=== PATIENT | female | born 2000 | race Caucasian/White ===

== ENCOUNTER → 2023-10-18 | Outpatient (CLI) | payer OTHER, SELFPAY ==
[2023-10-22 08:12] LABS: Chlamydia By Nucleic Acid AMP Negative (Negative); Gonococcus By Nucleic Acid AMP Negative (Negative)
[2023-10-25 17:53] LABS: HPV Reflexed? NOT INDICATED
== END | disposition home or self-care (01) ==
LOC: LABSPEC 17:06
PROVIDERS: PCP Family Medicine; Visit Provider Obstetrics & Gynecology
DX: Z11.3 Encounter for screening for infections with a predominantly sexual mode of transmission (principal); Z12.4 Encounter for screening for malignant neoplasm of cervix
CPT/HCPCS: 87491; 87591; 88175; G0145

== ENCOUNTER → 2023-10-30 | Outpatient (CLI) | payer OTHER, SELFPAY ==
--- NOTE | 2023-10-30 15:52 | US_ITS ---
STUDY: ULTRASOUND OF THE FEMALE PELVIS - COMPLETE REASON FOR EXAM: Female, 22 years old. PCOS LMP: 10/03/2023 TECHNIQUE: Transabdominal and Transvaginal TECHNICAL QUALITY: Adequate. COMPARISON: None. FINDINGS: The uterus is anteverted and is in a midline position. The uterus measures 8.4 x 6.8 x 4.3 cm. There is a Nabothian cyst of the cervix. The endometrium measures 15 mm in thickness, and is hyperechoic. Splitting of the endometrium in the fundus the uterus with intervening myometrium suggestive of a bicornuate uterus. There is no demonstrated endometrial mass. There is no demonstrated myometrial mass. I.U.D. - The patient does not have an I.U.D. The right ovary is visualized. The right ovary measures 3.9 x 2.9 x 2.7 cm. There is no right ovarian cyst or ovarian mass. 2 cm dominant follicle in the right ovary. There is no visualized right adnexal mass or complex lesion. There is normal arterial and normal venous vascularity. The left ovary is visualized. The left ovary measures 3.2 x 2.2 x 1.5 cm. There are multiple follicles of the left ovary without a dominant cyst. There is no visualized left adnexal mass or complex lesion. There is normal arterial and normal venous vascularity. There is no fluid in the cul-de-sac. The pre void volume of the bladder was ml. The post void volume of the bladder was ml. Polycystic ovary disease: Yes. US/Pelvic w/ Transvaginal IMPRESSION: 1. Bicornuate uterus. 2. Suspect polycystic ovaries. Electronically Signed: Bob Childers MD at 21:03 EST ,
[2023-10-30 17:25] LABS: Vitamin D,25 Hydroxy 26.1 ng/mL
[2023-10-30 17:29] LABS: Cholesterol 150 mg/dL (200); Estradiol 149.2 pg/mL; Glucose 91 mg/dL (74-106); High Density Lipoprotein 85 mg/dL; Thyroid Stim Hormone (TSH) 1.85 uIU/mL (0.358-3.74); Triglycerides 74 mg/dL; Very Low Density Lipoprotein 15 mg/dL (5-40)
[2023-11-06 15:08] LABS: Testosterone, % Free 2.82 % (0.50-2.80); Testosterone, Free 1.04 ng/dL (0.10-0.85); Testosterone, Total 37 ng/dL (13-71)
== END | disposition home or self-care (01) ==
PROVIDERS: PCP Family Medicine; Referring Provider Obstetrics & Gynecology; Visit Provider Obstetrics & Gynecology
DX: E28.2 Polycystic ovarian syndrome (principal); L68.0 Hirsutism; Z13.21 Encounter for screening for nutritional disorder; Z13.1 Encounter for screening for diabetes mellitus; Z13.29 Encounter for screening for other suspected endocrine disorder; Z13.220 Encounter for screening for lipoid disorders
CPT/HCPCS: 36415; 76830; 76856; 80061; 82306; 82627; 82670; 82947; 84402; 84403; 84443; 82626

== ENCOUNTER → 2023-11-12 | Outpatient (CLI) | payer OTHER, SELFPAY ==
[2023-11-12 17:19] LABS: hCG Titer Quant., Serum 24488 mIU/mL (1-3)
== END | disposition home or self-care (01) ==
LOC: LAB 15:58
PROVIDERS: PCP Family Medicine; Referring Provider Obstetrics & Gynecology; Visit Provider Obstetrics & Gynecology
DX: O36.80X0 Pregnancy with inconclusive fetal viability, not applicable or unspecified (principal); Z3A.00 Weeks of gestation of pregnancy not specified
CPT/HCPCS: 36415; 84702; 86850; 86900; 86901

== ENCOUNTER → 2023-11-18 | Outpatient (CLI) | payer OTHER, SELFPAY ==
--- NOTE | 2023-11-18 16:27 | US_ITS ---
EXAM: US , TRANSVAGINAL CLINICAL INDICATION: dating TECHNIQUE: Real-time transvaginal obstetrical ultrasound of the maternal pelvis and a first trimester with image documentation. Transvaginal imaging was used for better evaluation of the fetus and adnexa. COMPARISON: No relevant prior studies available. FINDINGS: GESTATION: There is an intrauterine gestation. Gestational sac has mean sac diameter 2.1 cm age 7 0 days. Measures 3 mm yolk sac. There is a pole crown-rump length of 6 mm age 6 weeks 4 days. heart rate is 120 bpm. PLACENTA/AMNIOTIC FLUID: There is a 2.7 x 1.1 x 2.7 cm hypoechoic structure in the uterus which may represent a subchorionic hemorrhage. UTERUS/CERVIX: Uterus measures 10.0 x 5.3 x 6.8 cm. No myometrial mass. OVARIES: The right ovary measures 3.3 x 2.7 x 2.5 cm. There is a 2.1 x 1.7 x 2.3 cm cyst in the right ovary. The left ovary measures 1.5 x 3.4 x 1 a.m. No mass. FREE FLUID: No free fluid. US/Transvaginal w/Preg US IMPRESSION: Intrauterine gestation with an average ultrasound age of 6 weeks 6 days and ultrasound estimated due date of 07/07/2024. heart rate is 120 bpm. There is a hypoechoic area in the uterus which may represent a subchorionic hemorrhage. Electronically Signed: Khanh Headley MD at 23:24 EST ,
== END | disposition home or self-care (01) ==
PROVIDERS: PCP Family Medicine; Referring Provider Obstetrics & Gynecology; Visit Provider Obstetrics & Gynecology
DX: Z34.90 Encounter for supervision of normal pregnancy, unspecified, unspecified trimester (principal); N81.2 Incomplete uterovaginal prolapse
CPT/HCPCS: 76817

== ENCOUNTER → 2023-12-06 | Outpatient (CLI) | payer OTHER, SELFPAY ==
[2023-12-09 22:07] LABS: Chlamydia By Nucleic Acid AMP Negative (Negative); Gonococcus By Nucleic Acid AMP Negative (Negative)
== END | disposition home or self-care (01) ==
PROVIDERS: PCP Family Medicine; Referring Provider Registered Nurse; Visit Provider Registered Nurse
DX: L68.0 Hirsutism (principal)
CPT/HCPCS: 87086; 87088; 87491; 87591

== ENCOUNTER → 2023-12-30 | Outpatient (CLI) | payer OTHER, SELFPAY ==
[2023-12-30 09:19] LABS: Absolute Lymphocyte Count 1.45 X10^3/uL (0.83-4.51); Basophil# 0.05 X10^3/uL; Basophil% 0.6 % (0-1); Eosinophil# 0.14 X10^3/uL; Eosinophils% 1.7 % (0-5); Hemoglobin 13.2 g/dL (12.0-15.0); Lymphocyte # 1.45 X10^3/ul (0.83-4.51); Lymphocyte % 17.7 % (19-41); Mean Corp Hgb Conc 33.8 g/dL (32-36); Mean Corpuscular Volume 82.6 fL (81-99); Mean Platelet Vol. 12.1 fl (6.2-12.0); Monocyte# 0.53 X10^3/uL; Monocyte% 6.5 % (0-10); NRBC Flagged by Analyzer 0 % (0-5); Neutrophil # 5.99 X10^3/uL (2.7-7.7); Platelet Count 249 K/mm3 (150-450); RBC Distribution Width CV 13.2 % (11.6-14.6); RBC Distribution Width SD 39.4 fl (35.1-43.9); Red Blood Count 4.72 M/mm3 (4.2-5.4); White Blood Count 8.2 K/mm3 (4.4-11.0)
--- OUTSIDE RECORDS SUMMARY | 2023-12-30 09:30 | XMS RPT_ITS | CCD ---
Author Name Unknown Address [address] [place] [address] Organization [facility] Care Team Providers Care Construction Management Assistant Name Role Phone Ezequiel Bahena Primary Care Provider [facility] Unavailable Medications Current Medications Medication Drug Class(es) Dates Sig (Normalized) Sig (Original) phenylephrine hydrochloride 25 mg/ml ophthalmic solution (1 source) alpha-1 Adrenergic Agonist Start: 01-10-2023 End: 01-10-2023 PHENYLephrine 2.5 % 1 Drop (AK-DILATE, ARGELIA-SYNEPHRINE) Problems Problem Classification Problem Date Documented Da te Episodic/Chronic Blindness and vision defects (4 sources) Bilateral myopia of eyes; Translations: [Myopia, bilateral] Onset: 04-10-2016 Episodic Encounters Encounter Date Encounter Type Care Provider Facility Start: 01-10-2023 End: 01-10-2023 ambulatory JONO STAHL II Facility:[facility] Start: 01-10-2023 End: 01-10-2023 Patient encounter procedure Jono Stahl OD Work Phone: Optometry Plan of Treatment Date Care Activity Detail Author Start: 12-02-2022 DEPRESSION ASSESSMENT DEPRESSION ASS ESSMENT [facility] Start: 08-02-2022 Influenza vaccination INFLUENZA (#1) [facility] Start: 2021 PAP TESTING PAP TESTING [facility] Start: 2019 Urine microalbumin profile DTAP,TDAP ,TD (1 - Tdap) [facility] Start: 2018 CHLAMYDIA SCREENING (18-24) CHLAMYDIA SCREENING (18-24) [facility] Start: 2018 GC (GONORRHEA) SCREE KURT (18-24) GC (GONORRHEA) SCREENING (18-24) [facility] Start: 2018 HEPATITIS C SCREENING HEPATITIS C SC REENING [facility] Start: 2018 HIV SCREENING HIV SCREENING [facility] Start: 2014 PEDS TO ADULT TRANSI TION ANNUAL ASSESSMENT PEDS TO ADULT TRANSITION ANNUAL ASSESSMENT [facility] Start: 2012 PEDS TO ADULT TRANSI TION INITIAL DISCUSSION PEDS TO ADULT TRANSITION INITIAL DISCUSSION [facility] Start: 2011 HPV VACCINE (1 - 2-d ose series) HPV VACCINE (1 - 2-dose series) [facility] Start: 05-12-2001 COVID-19 VACCINE (#1) COVID-19 VACCI NE (#1) [facility] Start: 2000 HEPATITIS B (1 of 3 - 3-dose series) HEPATITIS B (1 of 3 - 3-dose series) [facility] Payers Date Payer Category Payer Unknown [employer] P [employer] V[employer] [id number] 2015-Present [id number] [place] [address] Indemnity [id number] 2015 Unknown [id number] Social History Date Type Detail Facility Start: 04-10-2016 Tobacco smoking stat [facility] Never smoked tobacco [facility] Start: 04-10-2016 Tobacco use and exposure Smoke less tobacco non-user [facility] Start: 01-10-2023 Alcohol intake Ex-drinker (finding) [facility] Start: 2000 Sex Assigned At Not on file [facility] Progress note 01-10-2023 Note Date & Type Note Facility 01-10-2023 Note HNO ID: [id number] Author: Jono Stahl II, OD Service: ? Author Type: PADDED PRODUCTS INSPECTOR TRIMMER Type: Progress Notes Filed: 01/10/2023 8:31 AM Note Text: Assessment and Plan H52.13 Myopia of both eyes (primary encounter diagnosis) H52.223 Regular astigmatism of both eyes Comment: Ocular health maintained with contact lens use. Good fit. Brooks stable. Recheck in one year. I have confirmed and edited as necessary the relevant ophthalmic history, ROS, and the neuro exam findings as obtained by others. I have seen and examined Oziel Christian Leonel. I have discussed the case and the management of this patient's care with the Resident/Fellow, if applicable. I also have reviewed and agree with the assessment and plan as stated above and agree with all of its relevant components. [facility] 01-10-2023 Patient Instructions Note Date & Type Note Facility 01-10-2023 Instructions Jono Stahl II, OD - 01/10/2023 8:31 AM EST Assessment and Plan H52.13 Myopia of both eyes (primary encounter diagnosis) H52.223 Regular astigmatism of both eyes Comment: Ocular health maintained with contact lens use. Good fit. Brooks stable. Recheck in one year. I have confirmed and edited as necessary the relevant ophthalmic history, ROS, and the neuro exam findings as obtained by others. I have seen and examined Oziel Castaneda. I have discussed the case and the management of this patient's care with the Resident/Fellow, if applicable. I also have reviewed and agree with the assessment and plan as stated above and agree with all of its relevant components. Jono Stahl II, OD documented in this encounter [facility] History of Present illness Narrative 01-10-2023 Jono Stahl II, OD - 01/10/2023 8:30 AM EST Note Date & Type Note Facility 01-10-2023 History of Presen t illness Narrative Assessment and Plan H52.13 Myopia of both eyes (primary encounter diagnosis) H52.223 Regular astigmatism of both eyes Comment: Ocular health maintained with contact lens use. Good fit. Brooks stable. Recheck in one year. I have confirmed and edited as necessary the relevant ophthalmic history, ROS, and the neuro exam findings as obtained by others. I have seen and examined Oziel Castaneda. I have discussed the case and the management of this patient's care with the Resident/Fellow, if applicable. I also have reviewed and agree with the assessment and plan as stated above and agree with all of its relevant components. Jono H. Cooperrider II, OD documented in this encounter [facility] Evaluation note Note Date & Type Note Facility documented in this encounter [facility] Medications Administered Section Active Administered Medications - up to 3 most recent administrations Medication Order MAR Action Action Date Dose Rate Site PHENYLephrine 2.5 % 1 Drop (AK-DILATE, ARGELIA-SYNEPHRINE) 1 Drop, BOTH EYES, DIRECTED, Starting on Karla 01/10/23 at 0900, Until Karla 01/10/23 at 2028, Administer for dilation PROTECT FROM LIGHT Given 01/10/2023 9:00 AM EST 1 Drop Summary Purpose Family History No Family History Records Found Advance Directives No Advanced Directives Records Found Additional Source Comments Source Comments (unrecognize d section and content) In the event this informatio n is protected by the Federal Confidentiality of Alcohol and Drug Abuse Patient Records regulations: The Federal rules restrict any use of the information to criminally investigate or prosecute any alcohol or drug abuse patient.[facility] Reason for Visit (unrecogniz ed section and content) Care Teams (unrecognized sec tion and content) INFORMATION SOURCE (unrecogn ized section and content) FOR RECORDS PERTAINING TO PATIENTS WHO ARE OR HAVE BEEN ENROLLED IN A CHEMICAL DEPENDENCY/SUBSTANCEABUSE PROGRAM, SOME INFORMATION MAY BE OMITTED. This clinical summary was aggregated from multiple sources. Caution should be exercised in using it in the provision of clinical care. This summary normalizes information from multiple sources, and as a consequence, information in this document may materially change the coding, format and clinical context of patient data. In addition, data may be omitted in some cases. CLINICAL DECISIONS SHOULD BE BASED ON THE PRIMARY CLINICAL RECORDS. [facility]. provides no warranty or guarantee of the accuracy or completeness of information in this document.
[2023-12-30 09:53] LABS: NATERA MAILED SPECIMEN
[2023-12-30 09:55] LABS: Hemoglobin A1c 4.7 % (3.8-5.6)
[2023-12-30 10:23] LABS: HIV - WCH Non-Reactive (Nonreactive); Hepatitis B Surface Antigen Non-Reactive (Nonreactive); Hepatitis C Antibody Non-Reactive (Nonreactive); Rubella IgG Reactive (Nonreactive); Syphilis Antibodies Non-reactive
== END | disposition home or self-care (01) ==
LOC: LAB 08:52
PROVIDERS: PCP Family Medicine; Referring Provider Registered Nurse; Visit Provider Registered Nurse
DX: O36.80X0 Pregnancy with inconclusive fetal viability, not applicable or unspecified (principal); L68.0 Hirsutism; O99.719 Diseases of the skin and subcutaneous tissue complicating pregnancy, unspecified trimester; Z3A.00 Weeks of gestation of pregnancy not specified; E28.2 Polycystic ovarian syndrome; O99.280 Endocrine, nutritional and metabolic diseases complicating pregnancy, unspecified trimester
CPT/HCPCS: 36415; 83036; 85025; 86703; 86762; 86780; 86803; 86850; 86900; 86901; 87340

== ENCOUNTER 2024-04-09 08:35 | Outpatient (CLI) | payer SELFPAY ==
[2024-04-09] MEDS: 0.9% Saline Lock 10 ML Syringe IV ×2 (09:00→10:53)
[2024-04-09 09:07] VITALS: BP 148/79; PULSE 94; RESP 18; TEMP 37.1
[2024-04-09 09:17] VITALS: BMI 30.7
[2024-04-09 09:23] VITALS: BP 122/77; PULSE 92
[2024-04-09 09:25] LABS: Hematocrit 35.2 % (37-47); Hemoglobin 11.7 g/dL (12.0-15.0); Mean Corp Hgb Conc 33.2 g/dL (32-36); Mean Corpuscular Hgb 28.7 pg (27.0-32.0); Mean Corpuscular Volume 86.5 fL (81-99); Mean Platelet Vol. 11.7 fl (6.2-12.0); Mucous, Urine 0 SEEN /hpf (<or=2+); Platelet Count 277 K/mm3 (150-450); RBC Distribution Width CV 12.9 % (11.6-14.6); RBC Distribution Width SD 40.6 fl (35.1-43.9); Red Blood Cells-Urine 0 SEEN /hpf (0-5); Red Blood Count 4.07 M/mm3 (4.2-5.4); White Blood Count 14.7 K/mm3 (4.4-11.0)
[2024-04-09 09:39] LABS: Color, Urine Yellow (Yellow); Glucose, Dipstick Normal (Normal); Ketone-Dipstick Negative (Negative); Leukocyte Esterase-Dipstick 500 /ul (Negative); Nitrite-Dipstick Negative (Negative); Occult Blood-Urine Negative /ul (Negative); Protein-Dipstick Negative (Negative); Urine Bilirubin Dipstick Negative (Negative); Urine Clarity Sl. Cloudy (Clear); Urine Urobilinogen Normal (Normal)
[2024-04-09] MEDS: Lactated Ringers 1,000 ML 999 ML IV (09:43)
[2024-04-09 09:50] LABS: Bacteria 1+ /hpf (None Seen); Squamous Epithelial Cells - UA 0-5 SEEN /hpf (5-10); White Blood Cells 0-5 SEEN /hpf (0-5)
[2024-04-09 09:51] LABS: ROM Internal Control Test YES-OK TO RESULT pt. (Internal QC); ROM Patient Test Negative (Negative); Record Kit Lot#, ROM+ K1409
--- NOTE | 2024-04-09 10:22 | US_ITS ---
STUDY: SECOND AND THIRD TRIMESTER OBSTETRICAL ULTRASOUND REASON FOR EXAM: Female, 23 years old placenta location last ultrasound pt had previa LMP: October 03, 2023. TECHNIQUE: Transabdominal and Transvaginal TECHNICAL QUALITY: Adequate. PRIOR ULTRASOUND: None. FINDINGS: There is a single intrauterine fetus. The fetus is in a cephalic presentation. There is demonstrated cardiac activity with a heart rate of 140 bpm. There is a normal amniotic fluid volume. The placenta is posterior and low lying but not previa in location. There are Grade 0 placental changes. The cervix measures 4.4 cm in length. The bilateral adnexal regions are normal. The tip of the placenta is a 1.5 cm from the cervical os. US/Transvaginal w/Preg US IMPRESSION: The placental tip is at 1.5 cm from the cervical os. Electronically Signed: Anuj Leslie MD at 13:16 EDT ,
[2024-04-09 11:55] VITALS: BP 106/51; PULSE 77; PULSE 86; RESP 18; TEMP 37.3; O2SAT 100
--- NOTE | 2024-04-17 02:59 | OB.TRI.PN_ITS ---
Progress Notes Date of Service: 04/09/24 Progress Note: Patient presents for triage evaluation secondary to vaginal discharge FHT: 150 Moderate variability reactive no decelerations category I tracing [place]: no regular Contractions Assessment and plan: amniotic membranes intact, yeast infeciton suspected Reactive NST, reassuring maternal and status patient discharged to home to follow-up as scheudled. See problem list details for additional plan information. Laboratory Studies: Laboratory Tests 04/09/24 Range/Units 09:00 WBC 14.7 H (4.4-11.0) K/mm3 RBC 4.07 L (4.2-5.4) M/mm3 Hgb 11.7 L (12.0-15.0) g/dL Hct 35.2 L (37-47) % MCV 86.5 (81-99) fL MCH 28.7 (27.0-32.0) pg MCHC 33.2 (32-36) g/dL RDW Std Deviation 40.6 (35.1-43.9) fl RDW Coeff of Greg 12.9 (11.6-14.6) % Plt Count 277 (150-450) K/mm3 MPV 11.7 (6.2-12.0) fl Urine Color Yellow (Yellow) Urine Clarity Sl. Cloudy (Clear) Urine pH 8.0 (5.0 - 8.0) Ur Specific [place] 1.010 (1.002-1.030) Urine Protein Negative (Negative) mg/dl Urine Glucose (UA) Normal (Normal) mg/dl Urine Ketones Negative (Negative) mg/dl Urine Occult Blood Negative (Negative) /ul Urine Nitrite Negative (Negative) Urine Bilirubin Negative (Negative) mg/dL Urine Urobilinogen Normal (Normal) mg/dl Ur Leukocyte Esterase 500 H (Negative) /ul Urine RBC 0 SEEN (0-5) /hpf Urine WBC 0-5 SEEN (0-5) /hpf Ur Squamous Epith Cells 0-5 SEEN (5-10) /hpf Urine Bacteria 1+ (None Seen) /hpf Urine Mucus 0 SEEN (<or=2+) /hpf Vag Amniotic Fld Detect Negative (Negative) Blood Type O POSITIVE Antibody Screen NEGATIVE Charges/Coding Procedures Urinary/Genital 52xxx-59xxx: [id number] non-stress test Interp
== END 2024-04-09 13:05 | disposition home or self-care (01) ==
LOC: WPOUT 08:47 → WP 08:48
PROVIDERS: Referring Provider Obstetrics & Gynecology; Visit Provider Obstetrics & Gynecology
DX: O99.891 Other specified diseases and conditions complicating pregnancy (principal); N89.8 Other specified noninflammatory disorders of vagina; Z3A.00 Weeks of gestation of pregnancy not specified
CPT/HCPCS: 96360; 36415; 59025; 59050; 76817; 81001; 84112; 85027; 86850; 86900; 86901; 87070; 87086; 87088; 87205; 99221; J7120; A4216; G0378

== ENCOUNTER → 2024-04-22 | Outpatient (CLI) | payer OTHER, SELFPAY ==
[2024-04-22 09:43] LABS: Absolute Lymphocyte Count 1.61 X10^3/uL (0.83-4.51); Absolute Neutrophil Count 9.8 X10^3/uL (2.0-7.7); Basophil# 0.06 X10^3/uL; Basophil% 0.5 % (0-1); Eosinophil# 0.16 X10^3/uL; Eosinophils% 1.3 % (0-5); Hematocrit 35.9 % (37-47); Hemoglobin 11.7 g/dL (12.0-15.0); Lymphocyte # 1.61 X10^3/ul (0.83-4.51); Lymphocyte % 12.6 % (19-41); Mean Corp Hgb Conc 32.6 g/dL (32-36); Mean Corpuscular Hgb 28.5 pg (27.0-32.0); Mean Corpuscular Volume 87.3 fL (81-99); Mean Platelet Vol. 11.2 fl (6.2-12.0); Monocyte# 0.84 X10^3/uL; Monocyte% 6.6 % (0-10); NRBC Flagged by Analyzer 0 % (0-5); Neutrophil # 9.78 X10^3/uL (2.7-7.7); Neutrophil % 76.6 % (47-70); Platelet Count 254 K/mm3 (150-450); RBC Distribution Width SD 40.9 fl (35.1-43.9); Red Blood Count 4.11 M/mm3 (4.2-5.4); White Blood Count 12.8 K/mm3 (4.4-11.0)
[2024-04-22 09:53] LABS: Glucose Challenge Gest 1H 50g 96 mg/dL (70-140)
[2024-04-22 12:04] LABS: HIV - WCH Non-Reactive (Nonreactive); Syphilis Antibodies Non-reactive
== END | disposition home or self-care (01) ==
LOC: PAVLAB 09:09
PROVIDERS: Referring Provider Advanced Practice Midwife; Visit Provider Advanced Practice Midwife
DX: O09.90 Supervision of high risk pregnancy, unspecified, unspecified trimester (principal); Z3A.00 Weeks of gestation of pregnancy not specified; Z13.1 Encounter for screening for diabetes mellitus
CPT/HCPCS: 36415; 82950; 85025; 86703; 86780

== ENCOUNTER → 2024-05-20 | Outpatient (CLI) | payer OTHER, SELFPAY ==
--- NOTE | 2024-05-20 15:16 | US_ITS ---
STUDY: SECOND AND THIRD TRIMESTER OBSTETRICAL ULTRASOUND - LIMITED REASON FOR EXAM: Female, 23 years old Placental location, wellbeing -- 32 Weeks LMP: October 03, 2023. PRIOR ULTRASOUND: Comparison is made with prior examination April 09, 2024. TECHNIQUE: Transabdominal and Transvaginal TECHNICAL QUALITY: Adequate. FINDINGS: There is a single intrauterine fetus. The fetus is in a cephalic presentation. There is demonstrated cardiac activity with a heart rate of 133 bpm. There is a normal amniotic fluid volume. The largest amniotic fluid pocket measures 4.1 cm x 4.9 cm. The amniotic fluid index (BEA) is 12.8 cm. The placenta is posterior in location and is not low lying. The tip of the placenta is at 2.1 cm from the cervical os. There are Grade 0 placental changes. The cervix measures 4 cm in length. BIOMETRY: BPD: 7.83 cm: 31 weeks, 3 days HC: 30.4 cm: 33 weeks, 6 days AC: 29.47 cm: 33 weeks, 3 days FL: 6.43 cm: 33 weeks, 1 days Age by LMP: 32 weeks, 6 days. NICOLLE by LMP: July 09, 2024.. age by current US: 33 weeks, 2 days. NICOLLE by current US: July 06, 2024. Estimated weight: 2130 grams, +/- 319 grams, 50 percentile. US/OB Limited With Biometrics IMPRESSION: Single live intrauterine gestation with a mean gestational age of 33 weeks and 2 days. Electronically Signed: Anuj Leslie MD at 9:17 EDT ,
== END | disposition home or self-care (01) ==
LOC: US 15:15
PROVIDERS: Referring Provider Nurse Practitioner Women's Health; Visit Provider Nurse Practitioner Women's Health
DX: O44.40 Low lying placenta NOS or without hemorrhage, unspecified trimester (principal); Z3A.00 Weeks of gestation of pregnancy not specified
CPT/HCPCS: 76816

== ENCOUNTER 2024-05-30 17:06 | Outpatient (CLI) | payer OTHER, SELFPAY ==
[2024-05-30 17:31] VITALS: BP 127/69; PULSE 87
[2024-05-30 17:32] VITALS: BMI 32.9
[2024-05-30 17:34] VITALS: RESP 16; TEMP 36.9; O2SAT 100
[2024-05-30 18:49] LABS: Color, Urine Yellow (Yellow); Glucose, Dipstick Normal (Normal); Ketone-Dipstick Negative (Negative); Leukocyte Esterase-Dipstick Negative /ul (Negative); Nitrite-Dipstick Negative (Negative); Occult Blood-Urine 10 /ul (Negative); Protein-Dipstick Negative (Negative); Specific Gravity, Urine 1.005 (1.002-1.030); Urine Bilirubin Dipstick Negative (Negative); Urine Clarity Clear (Clear); Urine Urobilinogen Normal (Normal)
--- NOTE | 2024-05-31 07:03 | OB.TRI.PN_ITS ---
Progress Notes Date of Service: 05/31/24 Progress Note: Patient presents for triage evaluation secondary to contractions FHT: 140 Moderate variability reactive no decelerations category I tracing [place]: irreguylar Contractions Assessment and plan: threatened labor Reactive NST, reassuring maternal and status patient discharged to home to follow-up as scheudled. See problem list details for additional plan information. Laboratory Studies: Laboratory Tests 05/30/24 Range/Units 18:40 Urine Color Yellow (Yellow) Urine Clarity Clear (Clear) Urine pH 7.0 (5.0 - 8.0) Ur Specific [place] 1.005 (1.002-1.030) Urine Protein Negative (Negative) mg/dl Urine Glucose (UA) Normal (Normal) mg/dl Urine Ketones Negative (Negative) mg/dl Urine Occult Blood 10 H (Negative) /ul Urine Nitrite Negative (Negative) Urine Bilirubin Negative (Negative) mg/dL Urine Urobilinogen Normal (Normal) mg/dl Ur Leukocyte Esterase Negative (Negative) /ul Charges/Coding Procedures Urinary/Genital 52xxx-59xxx: [id number] non-stress test Interp
== END 2024-05-30 21:10 | disposition home or self-care (01) ==
LOC: WPOUT 17:18 → WP 17:19
PROVIDERS: Referring Provider Obstetrics & Gynecology; Visit Provider Obstetrics & Gynecology
DX: O47.9 False labor, unspecified (principal); Z3A.00 Weeks of gestation of pregnancy not specified
CPT/HCPCS: 59025; 59050; 81002; 87086; 87088; 99221; G0378

== ENCOUNTER → 2024-06-17 | Outpatient (CLI) | payer OTHER, SELFPAY | END | disposition home or self-care (01) | LOC: LABSPEC 15:07 | PROVIDERS: Referring Provider Advanced Practice Midwife; Visit Provider Advanced Practice Midwife | DX: O09.90 Supervision of high risk pregnancy, unspecified, unspecified trimester (principal); Z3A.00 Weeks of gestation of pregnancy not specified | CPT/HCPCS: 87081 ==

== ENCOUNTER → 2024-06-18 | Outpatient (CLI) | payer OTHER, SELFPAY ==
--- NOTE | 2024-06-18 15:33 | US_ITS ---
STUDY: SECOND AND THIRD TRIMESTER OBSTETRICAL ULTRASOUND - LIMITED REASON FOR EXAM: Female, 23 years old growth/placenta location LMP: PRIOR ULTRASOUND: 05/20/2024 TECHNIQUE: Transabdominal TECHNICAL QUALITY: Adequate. FINDINGS: There is a single intrauterine fetus. The fetus is in a cephalic presentation. There is demonstrated cardiac activity with a heart rate of 145 bpm. There is a normal amniotic fluid volume. The largest amniotic fluid pocket measures 7.7 cm. The amniotic fluid index (BEA) is 16.9 cm. The placenta is posterior in location and is not low lying. There are Grade 2 placental changes. The cervix measures 3.0 cm in length. BIOMETRY: BPD: 8.4 cm: 34 weeks, 0 days HC: 33.3 cm: 38 weeks, 0 days AC: 34.7 cm: 38 weeks, 4 days FL: 7.5 cm: 38 weeks, 5 days Age by LMP: weeks, days. NICOLLE by LMP: . age by prior US: 37 weeks, 0 days. NICOLLE by prior US: 07/09/2024. age by current US: 37 weeks, 2 days. NICOLLE by current US: 07/07/2024. Estimated weight: 3333 grams, +/- 500 grams, 77 percentile. Gender: US/OB Limited With Biometrics IMPRESSION: Living intrauterine of 37 weeks 2 days as described above. Electronically Signed: Bob Childers MD at 16:48 EDT ,
== END | disposition home or self-care (01) ==
LOC: US 15:32
PROVIDERS: Referring Provider Nurse Practitioner Women's Health; Visit Provider Nurse Practitioner Women's Health
DX: O44.40 Low lying placenta NOS or without hemorrhage, unspecified trimester (principal); Z3A.00 Weeks of gestation of pregnancy not specified
CPT/HCPCS: 76816

== ENCOUNTER 2024-06-22 10:20 | Outpatient (CLI) | payer OTHER, SELFPAY ==
[2024-06-22] VITALS (7 sets, daily range): BP systolic 116–132; BP diastolic 66–72; PULSE 82–97; RESP 16; TEMP 37.4; O2SAT 98–99; BMI 33.5
[2024-06-22 11:11] LABS: Mean Corp Hgb Conc 32.4 g/dL (32-36); Mean Corpuscular Hgb 26.6 pg (27.0-32.0); Mean Corpuscular Volume 82.1 fL (81-99); Platelet Count 250 K/mm3 (150-450); RBC Distribution Width CV 13.4 % (11.6-14.6); RBC Distribution Width SD 39.7 fl (35.1-43.9); Red Blood Count 4.14 M/mm3 (4.2-5.4); White Blood Count 13.6 K/mm3 (4.4-11.0)
[2024-06-22 11:40] LABS: AST(SGOT) 16 U/L (15-37); Alanine Aminotransfer ALT/SGPT 18 U/L (13-56); Creatinine, Serum 0.58 mg/dL (0.55-1.02); EST Glomerular Filtration Rate 138 mL/min (>60); Est Glom Filt Rate - Afr Amer 167 mL/min (>60); Estimated Creatinine Clearance 144.98 ml/min; Uric Acid 3.8 mg/dL (2.6-6.0)
[2024-06-22 11:41] LABS: Protein, Urine (Random) < 6.0 mg/dL (<11.9)
--- NOTE | 2024-06-22 16:45 | OB.TRI.HP_ITS ---
HPI - General General Date of Service: 06/22/24 HPI Narrative OZIEL CHRISTY, is a 23 F who presents at 37.4 with mild elevated BP in office. no headaches, visual changes or ruq pain. sent to for PEC work up/ Maternal Data Information NICOLLE Calculator Estimated Delivery Date Method Current WG Current Estimate 07/09/24 LMP (Certain) 37w 4d PFSH PFSH Medical History History of irregular menstrual cycles PCOS (polycystic ovarian syndrome) Hirsutism Home Medications ?Medication ?Instructions ?Recorded ?Last Taken ?Type multivitamin no.47-iron fum 27 1 cap PO QHS 11/29/23 05/29/24 History mg-folate no.1 1 mg-dha 300 mg capsule (PNV-DHA) Allergy/AdvReac Type Severity Reaction Status Date / Time No Known Allergies Allergy Verified 06/22/24 09:58 Family History Grandfather No problems noted. 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 current occupational exposures/hazards: No pets and animals: Yes pets and animals: dog(s) history of recent travel: No sexually active: Yes Smoking Status: Never smoker alcohol intake: current details: occasionally- not while substance use type: does not use well-balanced diet: daily or most days caffeine: Yes Type: tea Number of servings: 1 eating out: rarely or never during the past year weight has: remained stable what type of physical activity do you participate in: walking, yoga and weight training frequency: 1-2 times per week duration: 15-30 minutes/day marcial/yazdanism: Druze seatbelt use: always do you feel safe at home: Yes 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 1 Elective abortions Hx Para 0 Spontaneous abortions Hx # Term Pregnancies Ectopic pregnancies Hx # Pregnancies Multiple births # of living children Visit Details Expected Delivery Route/Plan Labor Preferences- CB/BF classes: scheduled labor support person: Richard labor intervention preferences: [] pain management options preferred: limited if possible cut cord/dad catch: yes : yes PP control planned: discussed discussed possible routes of delivery and associated risks: [] special requests: [] Plans Covid status: [] Flu vaccine: declined Tdap vaccine: given 04/22/24 Rhogam: NA LARC form signed: yes Problem list reviewed and updated with the most current plan of care details and appropriate orders placed. Relevant counseling for the gestational age provided. Continue routine care and follow up unless otherwise noted in visit notes/problem list details OB Flowsheet Initial Weight: Not Recorded Date -?-?-?-?-?-?-?-?-?-?-?-?- EGA Weight BP Urine Prot -?-?-?-?-?-?-?-?-?-?-?-?- Glucose FHR FuHt Pres Dilation -?-?-?-?-?-?-?-?-?-?-?-?- Effaced St Visit Note 12/06/23 -?-?-?-?-?-?-?-?-?-?-?-?- 9w 1d 143 lb 142/72 -?-?-?-?-?-?-?-?-?-?-?-?- 168 -?-?-?-?-?-?-?-?-?-?-?-?- LC=- 1st trim us at [facility] for NICOLLE 07/09/2024. no longer spotting. LONG 1.4cm LC=- 1st trim us at [facility] for NICOLLE 07/09/2024. no longer spotting. LONG 1.4cm decreased from initial us. accepts carrier and genetic screening. 12/30/23 -?-?-?-?-?-?-?-?-?-?-?-?- 12w 4d 141 lb 8 oz 149/76 Nega tive -?-?-?-?-?-?-?-?-?-?-?-?- Negative 156 -?-?-?-?-?-?-?-?-?-?-?-?- Lc- no vb/crampi ng. [facility] referral for us made. Lc- no vb/cramping. MFM refe rral for anatomy us made. declines afp. genetics pending. 01/28/24 -?-?-?-?-?-?-?-?-?-?-?-?- 16w 5d 147 lb 2 oz 124/80 Nega tive -?-?-?-?-?-?-?-?-?--?-?-?- Negative 153 -?-?-?-?-?-?-?-?-?-?-?-?- MH-No VB. Thinks feels flutters. Reviewed genetic results. Declines AFP. Nausea resolved 02/25/24 -?-?-?-?-?-?-?-?-?-?-?-?- 20w 5d 151 lb 133/78 Negative -?-?-?-?-?-?-?-?-?-?-?-?- Negative 150 -?-?-?-?-?-?-?-?-?-?-?-?- - no vb lof go od fm no regular ctx 03/24/24 -?-?-?-?-?-?-?-?-?-?-?-?- 24w 5d 156 lb 8 oz 131/84 Nega tive -?-?-?-?-?-?-?-?-?-?-?-?- Negative 145 24 -?-?-?-?-?-?-?-?-?-?-?-?- KW- no vb/lof/cr amping. good fm. 28 week labs discussed. leaving for Saturday. 04/22/24 -?-?-?-?-?-?-?-?-?-?-?-?- 28w 6d 164 lb 2 oz 126/82 Nega tive -?-?-?-?-?-?-?-?-?-?-?-?- Negative 138 28 -?-?-?-?-?-?-?-?-?-?-?-?- MH-No Vb, LOF. G ood Fm. 32 wk US ordered [facility] low lying placenta. Larc, tdap. 05/04/24 -?-?-?-?-?-?-?-?-?-?-?-?- 30w 4d 166 lb 4 oz 124/85 Nega tive -?-?-?-?-?-?-?-?-?-?-?-?- Negative 140 32 -?-?-?-?-?-?-?-?-?-?-?-?- JV- no lof, vagi nal bleeding, or dec fm. no complaints. has f/u ultrasound in a couple of weeks to look at placental location. was 1.5 cm from os at the last exam. 05/20/24 -?-?-?-?-?-?-?-?-?-?-?-?- 32w 6d 169 lb 127/80 Negative -?-?-?-?-?-?-?-?-?-?-?-?- Negative 140 34 -?-?-?-?-?-?-?-?-?-?-?-?- KW- no vb/lof/ct x. good fm. US today at 330 06/01/24 -?-?-?-?-?-?-?-?-?-?-?-?- 34w 4d 172 lb 6 oz 137/86 Nega tive -?-?-?-?-?-?-?-?-?-?-?-?- Negative 135 35 -?-?-?-?-?-?-?-?-?-?-?-?- KW- no vb/lof/ct x. good fm. 06/17/24 -?-?-?-?-?-?-?-?-?-?-?-?- 36w 6d 176 lb 119/78 Negative -?-?-?-?-?-?-?-?-?-?-?-?- Negative 140 37 -?-?-?-?-?-?-?-?-?-?-?-?- KW- no vb/lof/ct x. good fm. US tomorrow. GBS today 06/22/24 -?-?-?-?-?-?-?-?-?-?-?-?- 37w 4d 178 lb 178 lb 141/70 141/70 Negative -?-?-?-?-?-?-?-?-?-?-?-?- Negative 1 -?-?-?-?-?-?-?-?-?-?-?-?- 20 -3 SM- bps el evated- to l and d for evaluation. NST FHR Rate Baby A Baseline: 140 Variability:: Moderate Accelerations:: 15 x 15 Decelerations:: None NST Reactive:: Yes FHR Category:: Category I Assessment & Plan (1) Elevated BP without diagnosis of hypertension: COMMENT: stable BP in WP. normal PEC labs. ok for d/c home. PLAN: Patient presents for triage evaluation secondary to elevated bp in office FHT: Moderate variability reactive no decelerations category I tracing [place]: no Contractions Assessment and plan: Reactive NST, reassuring maternal and status patient discharged to home to follow-up in office. See problem list details for additional plan information. Charges/Coding Procedures Urinary/Genital 52xxx-59xxx: 81337-41 non-stress test Interp
--- NOTE | 2024-06-22 16:45 | OB.TRI.NOTE ---
HPI - General General Date of Service: 06/22/24 HPI Narrative OZIEL CHRISTY, is a 23 F who presents at 37.4 with mild elevated BP in office. no headaches, visual changes or ruq pain. sent to for PEC work up/ Maternal Data Information NICOLLE Calculator Estimated Delivery Date Method Current WG Current Estimate 07/09/24 LMP (Certain) 37w 4d PFSH PFSH Medical History History of irregular menstrual cycles PCOS (polycystic ovarian syndrome) Hirsutism Home Medications ?Medication ?Instructions ?Recorded ?Last Taken ?Type multivitamin no.47-iron fum 27 1 cap PO QHS 11/29/23 05/29/24 History mg-folate no.1 1 mg-dha 300 mg capsule (PNV-DHA) Allergy/AdvReac Type Severity Reaction Status Date / Time No Known Allergies Allergy Verified 06/22/24 09:58 Family History Grandfather No problems noted. 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 current occupational exposures/hazards: No pets and animals: Yes pets and animals: dog(s) history of recent travel: No sexually active: Yes Smoking Status: Never smoker alcohol intake: current details: occasionally- not while substance use type: does not use well-balanced diet: daily or most days caffeine: Yes Type: tea Number of servings: 1 eating out: rarely or never during the past year weight has: remained stable what type of physical activity do you participate in: walking, yoga and weight training frequency: 1-2 times per week duration: 15-30 minutes/day marcial/church: Mos[employer] seatbelt use: always do you feel safe at home: Yes 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 1 Elective abortions Hx Para 0 Spontaneous abortions Hx # Term Pregnancies Ectopic pregnancies Hx # Pregnancies Multiple births # of living children Visit Details Expected Delivery Route/Plan Labor Preferences- CB/BF classes: scheduled labor support person: Richard labor intervention preferences: [] pain management options preferred: limited if possible cut cord/dad catch: yes : yes PP control planned: discussed discussed possible routes of delivery and associated risks: [] special requests: [] Plans Covid status: [] Flu vaccine: declined Tdap vaccine: given 04/22/24 Rhogam: NA LARC form signed: yes Problem list reviewed and updated with the most current plan of care details and appropriate orders placed. Relevant counseling for the gestational age provided. Continue routine care and follow up unless otherwise noted in visit notes/problem list details OB Flowsheet Initial Weight: Not Recorded Date <del>?</del> EGA Weight BP Urine Prot <del>?</del> Glucose FHR FuHt Pres Dilation <del>?</del> Effaced St Visit Note 12/06/23 <del>?</del> 9w 1d 143 lb 142/72 <del>?</del> 168 <del>?</del> LC=- 1st trim us at [facility] for NICOLLE 07/09/2024. no longer spotting. LONG 1.4cm LC=- 1st trim us at [facility] for NICOLLE 07/09/2024. no longer spotting. LONG 1.4cm decreased from initial us. accepts carrier and genetic screening. 12/30/23 <del>?</del> 12w 4d 141 lb 8 oz 149/76 Negative <del>?</del> Negative 156 <del>?</del> Lc- no vb/cramping. MFM referral for us made. Lc- no vb/cramping. MFM referral for anatomy us made. declines afp. genetics pending. 01/28/24 <del>?</del> 16w 5d 147 lb 2 oz 124/80 Negative <del>?</del> Negative 153 <del>?</del> MH-No VB. Thinks feels flutters. Reviewed genetic results. Declines AFP. Nausea resolved 02/25/24 <del>?</del> 20w 5d 151 lb 133/78 Negative <del>?</del> Negative 150 <del>?</del> SM- no vb lof good fm no regular ctx 03/24/24 <del>?</del> 24w 5d 156 lb 8 oz 131/84 Negative <del>?</del> Negative 145 24 <del>?</del> KW- no vb/lof/cramping. good fm. 28 week labs discussed. leaving for [place] saturday. 04/22/24 <del>?</del> 28w 6d 164 lb 2 oz 126/82 Negative <del>?</del> Negative 138 28 <del>?</del> MH-No Vb, LOF. Good Fm. 32 wk US ordered [facility] low lying placenta. Larc, tdap. 05/04/24 <del>?</del> 30w 4d 166 lb 4 oz 124/85 Negative <del>?</del> Negative 140 32 <del>?</del> JV- no lof, vaginal bleeding, or dec fm. no complaints. has f/u ultrasound in a couple of weeks to look at placental location. was 1.5 cm from os at the last exam. 05/20/24 <del>?</del> 32w 6d 169 lb 127/80 Negative <del>?</del> Negative 140 34 <del>?</del> KW- no vb/lof/ctx. good fm. US today at 330 06/01/24 <del>?</del> 34w 4d 172 lb 6 oz 137/86 Negative <del>?</del> Negative 135 35 <del>?</del> KW- no vb/lof/ctx. good fm. 06/17/24 <del>?</del> 36w 6d 176 lb 119/78 Negative <del>?</del> Negative 140 37 <del>?</del> KW- no vb/lof/ctx. good fm. US tomorrow. GBS today 06/22/24 <del>?</del> 37w 4d 178 lb 178 lb 141/70 141/70 Negative <del>?</del> Negative 1 <del>?</del> 20 -3 SM- bps elevated- to l and d for evaluation. NST FHR Rate Baby A Baseline: 140 Variability:: Moderate Accelerations:: 15 x 15 Decelerations:: None NST Reactive:: Yes FHR Category:: Category I Assessment & Plan (1) Elevated BP without diagnosis of hypertension: COMMENT: stable BP in WP. normal PEC labs. ok for d/c home. PLAN: Patient presents for triage evaluation secondary to elevated bp in office FHT: Moderate variability reactive no decelerations category I tracing [place]: no Contractions Assessment and plan: Reactive NST, reassuring maternal and status patient discharged to home to follow-up in office. See problem list details for additional plan information. Charges/Coding Procedures Urinary/Genital 52xxx-59xxx: [id number] non-stress test Interp
== END 2024-06-22 12:15 | disposition home or self-care (01) ==
LOC: WPOUT 10:27 → WP 10:28
PROVIDERS: Obstetrics & Gynecology; Referring Provider Registered Nurse; Visit Provider Registered Nurse
DX: O99.891 Other specified diseases and conditions complicating pregnancy (principal); R03.0 Elevated blood-pressure reading, without diagnosis of hypertension; Z3A.37 37 weeks gestation of pregnancy
CPT/HCPCS: 36415; 59025; 59050; 82565; 82570; 84156; 84450; 84460; 84550; 85027; 99221; G0378

== ENCOUNTER 2024-06-29 17:44 | Inpatient (IN) | payer OTHER, SELFPAY ==
[2024-06-29] VITALS (13 sets, daily range): BP systolic 115–142; BP diastolic 57–76; PULSE 86–112; RESP 16; TEMP 37.1–37.3; BMI 33.7
[2024-06-29 16:55] LABS: Hematocrit 34.2 % (37-47); Hemoglobin 11.1 g/dL (12.0-15.0); Mean Corp Hgb Conc 32.5 g/dL (32-36); Mean Corpuscular Hgb 26.2 pg (27.0-32.0); Mean Corpuscular Volume 80.9 fL (81-99); Mean Platelet Vol. 12.4 fl (6.2-12.0); Platelet Count 257 K/mm3 (150-450); RBC Distribution Width CV 13.6 % (11.6-14.6); RBC Distribution Width SD 39.6 fl (35.1-43.9); Red Blood Count 4.23 M/mm3 (4.2-5.4); White Blood Count 13.4 K/mm3 (4.4-11.0)
[2024-06-29 17:01] LABS: Protein, Urine (Random) 11.2 mg/dL (<11.9); Protein:Creat Ratio 158 mg/g CRE (0-200)
[2024-06-29 17:10] LABS: AST(SGOT) 16 U/L (15-37); Alanine Aminotransfer ALT/SGPT 19 U/L (13-56); Creatinine, Serum 0.57 mg/dL (0.55-1.02); EST Glomerular Filtration Rate 139 mL/min (>60); Est Glom Filt Rate - Afr Amer 168 mL/min (>60); Uric Acid 3.4 mg/dL (2.6-6.0)
--- NOTE | 2024-06-29 17:34 | HP.PCM.OB_ITS ---
HPI - General General Date of Admission: 06/29/24 HPI Narrative OZIEL CHRISTY, is a 23 F 38.4 gestation who presents to unit for elevated BP in the office. Continues to be elevated, pre ecampsia labs are normal. Discussed with Dr Chavarria and decision made for IOL for gestational HTN Maternal Data Information NICOLLE Calculator Estimated Delivery Date Method Current WG Current Estimate 07/09/24 LMP (Certain) 38w 4d Final NICOLLE: 07/09/24 Final NICOLLE Source: US >20 weeks Gestational age: 38.4 PFSH PFSH Medical History History of irregular menstrual cycles PCOS (polycystic ovarian syndrome) Hirsutism Home Medications ?Medication ?Instructions ?Recorded ?Last Taken ?Type multivitamin no.47-iron fum 27 1 cap PO QHS 11/29/23 06/28/24 22:00 History mg-folate no.1 1 mg-dha 300 mg 1 cap capsule (PNV-DHA) Allergy/AdvReac Type Severity Reaction Status Date / Time No Known Allergies Allergy Verified 06/29/24 17:36 Family History Grandfather No problems noted. 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 current occupational exposures/hazards: No pets and animals: Yes pets and animals: dog(s) history of recent travel: No sexually active: Yes Smoking Status: Never smoker alcohol intake: current details: occasionally- not while substance use type: does not use well-balanced diet: daily or most days caffeine: Yes Type: tea Number of servings: 1 eating out: rarely or never during the past year weight has: remained stable what type of physical activity do you participate in: walking, yoga and weight training frequency: 1-2 times per week duration: 15-30 minutes/day marcial/voodoo: Restorationism seatbelt use: always do you feel safe at home: Yes 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 1 Elective abortions Hx Para 0 Spontaneous abortions Hx # Term Pregnancies Ectopic pregnancies Hx # Pregnancies Multiple births # of living children Visit Details Expected Delivery Route/Plan Labor Preferences- CB/BF classes: scheduled labor support person: Richard labor intervention preferences: [] pain management options preferred: limited if possible cut cord/dad catch: yes : yes PP control planned: discussed discussed possible routes of delivery and associated risks: [] special requests: [] Plans Covid status: [] Flu vaccine: declined Tdap vaccine: given 04/22/24 Rhogam: NA LARC form signed: yes Problem list reviewed and updated with the most current plan of care details and appropriate orders placed. Relevant counseling for the gestational age provided. Continue routine care and follow up unless otherwise noted in visit notes/problem list details OB Flowsheet Initial Weight: Not Recorded Date -?-?-?-?-?-?-?-?-?-?-?-?- EGA Weight BP Urine Prot -?-?-?-?-?-?-?-?-?-?-?-?- Glucose FHR FuHt Pres Dilation -?-?-?-?-?-?-?-?-?-?-?-?- Effaced St Visit Note 12/06/23 -?-?-?-?-?-?-?-?-?-?-?-?- 9w 1d 143 lb 142/72 -?-?-?-?-?-?-?-?-?-?-?-?- 168 -?-?-?-?-?-?-?-?-?-?-?-?- LC=- 1st trim us at [facility] for NICOLLE 07/09/2024. no longer spotting. LONG 1.4cm LC=- 1st trim us at [facility] for NICOLLE 07/09/2024. no longer spotting. LONG 1.4cm decreased from initial us. accepts carrier and genetic screening. 12/30/23 -?-?-?-?-?-?-?-?-?-?-?-?- 12w 4d 141 lb 8 oz 149/76 Nega tive -?-?-?-?-?-?-?-?-?-?-?-?- Negative 156 -?-?-?-?-?-?-?-?-?-?-?-?- Lc- no vb/crampi ng. MFM referral for us made. Lc- no vb/cramping. MFM refe rral for anatomy us made. declines afp. genetics pending. 01/28/24 -?-?-?-?-?-?-?-?-?-?-?-?- 16w 5d 147 lb 2 oz 124/80 Nega tive -?-?-?-?-?-?-?-?-?-?-?-?- Negative 153 -?-?-?-?-?-?-?-?-?-?-?-?- MH-No VB. Thinks feels flutters. Reviewed genetic results. Declines AFP. Nausea resolved 02/25/24 -?-?-?-?-?-?-?-?-?-?-?-?- 20w 5d 151 lb 133/78 Negative -?-?-?-?-?-?-?-?-?-?-?-?- Negative 150 -?-?-?-?-?-?-?-?-?-?-?-?- SM- no vb lof go od fm no regular ctx 03/24/24 -?-?-?-?-?-?-?-?-?-?-?-?- 24w 5d 156 lb 8 oz 131/84 Nega tive -?-?-?-?-?-?-?-?-?-?-?-?- Negative 145 24 -?-?-?-?-?-?-?-?-?-?-?-?- KW- no vb/lof/cr amping. good fm. 28 week labs discussed. leaving for Saturday. 04/22/24 -?-?-?-?-?-?-?-?--?-?-?-?- 28w 6d 164 lb 2 oz 126/82 Nega tive -?-?-?-?-?-?-?-?-?-?-?-?- Negative 138 28 -?-?-?-?-?-?-?-?-?-?-?-?- MH-No Vb, LOF. G ood Fm. 32 wk US ordered [facility] low lying placenta. Larc, tdap. 05/04/24 -?-?-?-?-?-?-?-?-?-?-?-?- 30w 4d 166 lb 4 oz 124/85 Nega tive -?-?-?-?-?-?-?-?-?-?-?-?- Negative 140 32 -?-?-?-?-?-?-?-?-?-?-?-?- JV- no lof, vagi nal bleeding, or dec fm. no complaints. has f/u ultrasound in a couple of weeks to look at placental location. was 1.5 cm from os at the last exam. 05/20/24 -?-?-?-?-?-?-?-?-?-?-?-?- 32w 6d 169 lb 127/80 Negative -?-?-?-?-?-?-?-?-?-?-?-?- Negative 140 34 -?-?-?-?-?-?-?-?-?-?-?-?- KW- no vb/lof/ct x. good fm. US today at 330 06/01/24 -?-?-?-?-?-?-?-?-?-?-?-?- 34w 4d 172 lb 6 oz 137/86 Nega tive -?-?-?--?-?-?-?-?-?-?-?-?- Negative 135 35 -?-?-?-?-?-?-?-?-?-?-?-?- KW- no vb/lof/ct x. good fm. 06/17/24 -?-?-?-?-?-?-?-?-?-?-?-?- 36w 6d 176 lb 119/78 Negative -?-?-?-?-?-?-?-?-?-?-?-?- Negative 140 37 -?-?-?-?-?-?-?-?-?-?-?-?- KW- no vb/lof/ct x. good fm. US tomorrow. GBS today 06/22/24 -?-?-?-?-?-?-?-?-?-?-?-?- 37w 4d 178 lb 178 lb 141/70 141/70 Negative -?-?-?-?-?-?-?-?-?-?-?-?- Negative 1 -?-?-?-?-?-?-?-?-?-?-?-?- 20 -3 SM- bps el evated- to l and d for evaluation. 06/29/24 -?-?-?-?-?-?-?-?-?-?-?-?- 38w 4d 179 lb 151/96 141/93 Negative -?-?-?-?-?-?-?-?-?-?-?-?- Negative 135 38 1 -?-?-?-?-?-?-?-?-?-?-?-?- 50 -2 KW- no vb. lof.reg ctx. good fm. no mclean/dizziness/ bv KW- no vb.lof.reg ctx. good fm. no mclean/dizziness/ bv. to wp for evaluation NST FHR Rate Baby A Baseline: 130 Variability:: Moderate Accelerations:: 15 x 15 Decelerations:: None NST Reactive:: Yes FHR Category:: Category I Uterine Activity:: 3-5 minutes ROS Constitutional Constitutional: Denies change in weight, fatigue, fever(s), headache(s), poor appetite or weakness Eyes Eyes: Denies blurry vision, change in vision, floaters, seeing flashes or spots in vision ENT HEENT: Denies dizziness, headache(s), loss taste/smell or sore throat Cardiovascular Cardiovascular: Denies chest pain, dizziness, dyspnea, irregular heart rhythm, lightheadedness, palpitations or rapid heart rate Respiratory/Chest Respiratory/Chest: Denies change in mental status, chest tightness, cough, dyspnea or breast pain Gastrointestinal Gastrointestinal: Denies anorexia, chewing difficulty, constipation, diarrhea or weight changes Genitourinary Genitourinary: Denies difficulty urinating, dysuria, flank pain, genital pain, urinary frequency or urinary urgency Musculoskeletal Musculoskeletal: Denies back pain, difficulty walking, extremity pain, joint pain, muscle cramps or muscle weakness Integumentary Integumentary: Denies lesions or unusual bruising Neurologic Neurologic: Denies abnormal movements, abnormal speech, dizziness, numbness, seizure-like activity, syncope or weakness Psychiatric Psychiatric: Denies behavioral changes, change in appetite, confusion, depression, homicidal ideation, suicidal ideation or suicidal thoughts Endocrine Endocrinology: Denies excessive sweating, polydipsia or polyuria Hematologic/Lymphatic Hematologic/Lymphatic: Denies anemia Allergic/Immunologic Allergic/Immunologic: Denies itchy eyes, lip swelling, throat swelling, tongue swelling or wheezing Vital Signs Vital Signs Vital Signs: 06/29/24 16:33 06/29/24 16:33 06/29/24 16:33 Temperature Temperature Source Temporal Pulse Rate 100 Respiratory Rate Blood Pressure 142/72 H BP Systolic 142 BP Diastolic 72 06/29/24 16:33 06/29/24 16:33 06/29/24 16:48 Temperature 99.1 F Temperature Source Pulse Rate Respiratory Rate 16 Blood Pressure 138/76 H BP Systolic 138 BP Diastolic 76 06/29/24 16:48 06/29/24 17:03 06/29/24 17:03 Temperature Temperature Source Pulse Rate 112 H 109 H Respiratory Rate Blood Pressure 140/72 H BP Systolic 140 BP Diastolic 72 06/29/24 17:19 06/29/24 17:19 06/29/24 17:33 Temperature Temperature Source Pulse Rate 86 Respiratory Rate Blood Pressure 142/71 H 140/68 H BP Systolic 142 140 BP Diastolic 71 68 06/29/24 17:33 Temperature Temperature Source Pulse Rate 90 Respiratory Rate Blood Pressure BP Systolic BP Diastolic Physical Exam Const alert, oriented x3 and no apparent distress General Appearance: cooperative Orientation / Consciousness: awake HEENT normocephalic Neck full ROM Lymph Lymphatic: no lymphadenopathy noted Chest inspection of chest normal Resp normal respiratory effort and normal air movement Effort and Inspection: able to speak in complete sentences and symmetric chest movement GI soft to palpation and non-tender Inspection: gravid Palpation: soft; Negative for tender external exam normal Back/Spine normal to inspection Extremity normal to inspection and full ROM Skin no rashes or lesions noted Psych mental status grossly normal Appearance: grossly normal Speech: normal speech Labs Labs Labs: Blood Type O POSITIVE Antibody Screen NEGATIVE Hct 34.2 % (37-47) L Hgb 11.1 g/dL (12.0-15.0) L Obstetrics Ultrasound Syphilis Total Ab Non-reactive Rubella IgG Antibody Reactive (Nonreactive) Hep Bs Antigen Non-Reactive (Nonreactive) Hepatitis C Antibody Non-Reactive (Nonreactive) Chlamydia DNA (OTTO) Negative (Negative) N.gonorrhoeae DNA (OTTO) Negative (Negative) HIV 1&2 Antibody Non-Reactive (Nonreactive) Glucose 1 Hr 50 gm 96 mg/dL (70-140) Assessment & Plan (1) Gestational HTN: COMMENT: IOL 38.4 weeks (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 genetic & carrier testing- neg for carrier fragile X. NIPT LR. Declines AFP (6) Encounter for induction of labor: PLAN: Patient presents IOL, plan management for with pitocin/AROM. Pain management: plans epidural. GBS negative. Management of any complications: gestational HTN I have reviewed the [facility] and made any clinically relevant updates. Dr Chavarria aware of assessment and plan and agrees with above findings and plan Charges/Coding Multi Select Codes Urinary/Genital Urinary/Genital CPT Codes: No Charge
[2024-06-29] MEDS: Lactated Ringers 1,000 ML 50 ML IV (21:40)
[2024-06-29] MEDS: 0.9% Normal Saline Single 100 ML IV.SOLN. INTRA-UTER (21:56)
--- NOTE | 2024-06-29 22:00 | PN_ITS ---
Progress Note Coping well with contractions current tracing: FHT: 135 Moderate variability reactive no decelerations category I tracing [place]: 3-5 minute Contractions Membranes:intact SVE:/-3 Due to unit staffing and patient census, unable to start IOL. Plan to place chambers bulb without pitocin at this time. Once chambers bulb falls out or unit censu s appropriate for staffing will consider starting pitocin if needed. A/P: IV started Chambers Bulb easily placed. Continue with position changes Start pitocin per protocol. 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
[2024-06-29 22:49] LABS: Syphilis Antibodies Non-reactive
[2024-06-30] VITALS (65 sets, daily range): BP systolic 114–160; BP diastolic 51–93; PULSE 70–126; RESP 14–20; TEMP 36.1–38.2; O2SAT 84–100
[2024-06-30] MEDS: Oxytocin 15 Units/NS 250ml 15 UNITS/250 ML IV.SOLN 2 UNITS IV (01:35)
--- NOTE | 2024-06-30 03:50 | PCM.PN.BLA ---
Progress Note Coping well with contractions current tracing: FHT: 135 Moderate variability reactive no decelerations category I tracing [place]: 2-4 Contractions Membranes:intact SVE:4/70/-3 Pitocin at 4mu To unit to evaluate patient for increased vaginal bleeding after chambers bulb expelling. Patient was up to bathroom and went back to bed when bleeding started. Nursing went into room and performed a vaginal exam. I was called to unit for evaluation. Discussed with nursing and was noted clot with increased vaginal bleeding that was reported by nursing. approx 100cc EBL after viewing pads and clot. SVE performed by me and cervical change noted from last exam. No active bleeding on exam and scant blood noted on glove with exam. Decision made not to rupture membranes at this time due to bleeding and high station. Will monitor for 2-3 hours before ROM. 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
[2024-06-30] MEDS: Lactated Ringers 1,000 ML 999 ML IV (07:37)
[2024-06-30] MEDS: fentaNYL-bupivacaine (epidural) 100 ML BAG EPIDURAL ×3 (08:15→17:07)
--- NOTE | 2024-06-30 09:01 | PN_ITS ---
Progress Note AROM mildly blood tinged fluid, no oumar bleeding current tracing: FHT: at present 140 Moderate variability reactive no decelerations now category I tracing [place]: q 2-3 Contractions reviewed tracing abnormalities since last note: occasional early decel isolated ltae A/P: iupc placed, pit at 4 arom done discussed with patient and nursing monitor bleeding and ctx MV units, adjust pit accordingly.
[2024-06-30] MEDS: Lactated Ringers 1,000 ML 200 ML IV ×2 (11:50→16:05)
[2024-06-30] MEDS: 0.9% Saline Lock 10 ML Syringe IV (19:47)
[2024-06-30] MEDS: Ondansetron 4 MG/2 ML Vial IV (19:47)
[2024-06-30] MEDS: Acetaminophen 500 MG Tablet PO (21:10)
[2024-06-30] MEDS: Oxytocin 15 Units/NS 250ml 15 UNITS/250 ML IV.SOLN 334 UNITS IV (21:20)
[2024-06-30] MEDS: Ampicillin 2 GM in 0.9% Normal Saline (100mL MB+) 100 ML IV (21:26)
[2024-06-30] MEDS: Methylergonovine 0.2 MG/ML Ampul IM (21:37)
[2024-06-30] MEDS: TRANEXAMIC ACID 1,000 MG in 0.9% Normal Saline (100mL Bag) 100 ML 440 MG IV (21:54)
[2024-06-30] MEDS: Gentamicin IV 240 MG in Dextrose 5%-Water (50mL Bag) 50 ML 100 MG IVPB (21:58)
[2024-06-30] MEDS: Oxytocin 15 Units/NS 250ml 15 UNITS/250 ML IV.SOLN 83 UNITS IV (22:05)
[2024-06-30 22:35] LABS: Basophil# 0.06 X10^3/uL; Basophil% 0.2 % (0-1); Eosinophil# 0.08 X10^3/uL; Eosinophils% 0.2 % (0-5); Hematocrit 30.5 % (37-47); Lymphocyte % 4.2 % (19-41); Mean Corp Hgb Conc 32.8 g/dL (32-36); Mean Corpuscular Hgb 26.5 pg (27.0-32.0); Mean Corpuscular Volume 80.9 fL (81-99); Mean Platelet Vol. 12.1 fl (6.2-12.0); Monocyte# 2.27 X10^3/uL; Monocyte% 6.9 % (0-10); NRBC Flagged by Analyzer 0 % (0-5); Neutrophil # 29.02 X10^3/uL (2.7-7.7); Neutrophil % 87.8 % (47-70); POSITIVE COUNT YES; POSITIVE DIFFERENTIAL YES; Platelet Count 261 K/mm3 (150-450); RBC Distribution Width CV 13.7 % (11.6-14.6); RBC Distribution Width SD 40.1 fl (35.1-43.9); Red Blood Count 3.77 M/mm3 (4.2-5.4)
[2024-06-30 22:38] LABS: Differential Indicated SCAN CRITERIA MET; White Blood Count 33.1 K/mm3 (4.4-11.0)
[2024-06-30 23:00] LABS: Differential Comment SEE COMMENTS; Platelet Estimate ADEQUATE (ADEQ); Red Cell Morphology N CHROM NORMAL (NORM C&C)
[2024-06-30 23:01] LABS: Anisocytosis RARE; Microcytosis RARE
[2024-07-01] VITALS (7 sets, daily range): BP systolic 109–124; BP diastolic 56–73; PULSE 70–104; RESP 14–16; TEMP 36.1–37.5; O2SAT 96–99
--- NOTE | 2024-07-01 00:01 | EX.PCM.OBRPT ---
Assessment & Plan (1) Chorioamnionitis in third trimester: (2) Encounter for induction of labor: (3) Gestational HTN: COMMENT: IOL 38.4 weeks (4) Elevated BP without diagnosis of hypertension: COMMENT: stable BP in WP. normal PEC labs. ok for d/c home. (5) Bicornate uterus: (6) Supervision of high risk , antepartum: COMMENT: [id number], NICOLLE , boy, Richard (7) : QUALIFIERS: Weeks of gestation: 38 weeks Qualified Code(s): Z3A.38 - 38 weeks gestation of COMMENT: neg GBS. genetic & carrier testing- neg for carrier fragile X. NIPT LR. Declines AFP Maternal Data Information NICOLLE Calculator Estimated Delivery Date Method Current WG Current Estimate 07/09/24 LMP (Certain) 38w 6d Vaginal Delivery Operative Information Date of Procedure: 06/30/24 Pre-Operative Diagnosis: see a/p diagnoses Post-Operative Diagnosis: same Surgery / Procedure Performed: Spontaneous Vaginal Delivery Type of Anesthesia: Epidural Special Medications: none Estimated Blood Loss: 600 Fluids Replaced: crystalloid Findings Description of Procedure: Patient began pushing and delivered the head in the JARRED presentation. The head was delivered atraumatically and a tight nc x 1 noted, infant delivered through with some manipulation. The anterior and posterior shoulders delivered without complication followed by the rest of the infant and the was placed on the maternal abdomen. Delayed cord clamping was employed for approximately 60 seconds. Cord was clamped and cut and gentle traction was applied to the cord and the placenta delivered spontaneously immediately following it was noted to be intact with three-vessel cord. The perineum and vagina were inspected and noted to have a second degree perineal laceration which was repaired in the usual fashion with 3-0 vicryl rapide. some atony noted treated with methergine and TXA. EBL was 600. Patient and tolerated delivery well. Amniotic Fluid Description: Clear Placental Delivery Description: Spontaneous Placenta Disposition: [facility] Cord Vessel Description: 3 Vessels Cord Entanglement: Around neck x 1, tight Delayed Cord Clamping: Yes Post Vaginal Delivery Medications Given After Delivery: IV Pitocin Episiotomy Description: None Complication Complications: None Procedures Urinary/Genital [id number]: [id number] Vaginal Delivery [facility]
--- NOTE | 2024-07-01 01:26 | DCINST_ITS ---
Discharge Instructions Diet Discharge Diet: No restrictions Activity Discharge Activity: Return to Normal Activity, May Not Drive (while taking narcotic pain medications.) and May Shower May resume sexual activity in: 4-6 weeks Dressing / Incision Call your doctor if your incision/area has: Continuous Slow Oozing, Sudden Increased Bleeding, Increased Pain/ Swelling, Increased Redness and Foul Smelling Discharge Follow Up Care Please Follow Up With: Tatianna Faye MD When: Call [phone] to make an appointment with your doctor in 6 weeks. If you had elevated blood pressure or 4th degree laceration, you will need to be seen in 2 weeks. Test Results: Test results from this visit will be discussed in further detail at your follow- up appointment, if applicable. Discharge Plan Admission Admit Date/Time: 06/29/24 17:44 Attending Provider: Tatianna Faye Primary Care Provider: Care Physician,Guera Primary Discharge Orders/Prescriptions Prescriptions: No Action PNV-DHA 27 mg iron-1 mg -300 mg capsule 1 cap PO QHS Referrals / Follow Up: Care Physician,No Primary [Primary Care Provider] - Disposition Disposition (needs filled in before D/C Order can be placed): Home, Self Care
[2024-07-01] MEDS: 0.9% Saline Lock 10 ML Syringe IV ×4 (02:02→17:28)
[2024-07-01] MEDS: Ondansetron 4 MG/2 ML Vial IV (02:02)
[2024-07-01] MEDS: Senna/Docusate Sodium 1 Tablet PO (02:25)
[2024-07-01] MEDS: Benzocaine/Lanolin/Aloe Vera 1 SPRAY EACH TOPICAL (02:25)
[2024-07-01] MEDS: Naproxen 500 MG Tablet PO ×2 (02:25→12:53)
[2024-07-01] MEDS: Ampicillin 2 GM in 0.9% Normal Saline (100mL MB+) 100 ML IV ×3 (02:26→16:00)
--- NOTE | 2024-07-01 08:08 | PCM.PN.OB ---
Subjective Subjective Patient doing well without complaints. Tolerating PO. Ambulating and voiding without difficulty. Feeding well. Denies chest pain, shortness of breath, calf pain/swelling, fevers, chills, lightheadedness. Objective Data Objective Data Vital Signs: Vital Signs Temp Pulse Resp BP Pulse Ox O2 Del Method 99.1 F 104 H 14 116/73 96 Room Air 07/01/24 03:41 07/01/24 03:41 07/01/24 03:41 07/01/24 03:41 07/01/24 03:41 07/01/24 03:41 Oxygen Delivery Method Room Air Weight: 178 lb 12.718 oz Body Mass Index (BMI) 33.7 Intake & Output: Intake and Output for Last 24 Hours 06/29/24 06/30/24 07/01/24 23:59 23:59 23:59 Intake Total 4675.40 / 4675.40 342.08 / 342.08 Output Total 630 / 630 Balance 4045.40 / 4045.40 342.08 / 342.08 Lab / Micro Data 06/30/24 22:30 06/29/24 16:20 Labs: Laboratory Results - last 24 hr 06/30/24 22:30: WBC 33.1 H*, RBC 3.77 L, Hgb 10.0 L, Hct 30.5 L, MCV 80.9 L, MCH 26.5 L, MCHC 32.8, RDW Std Deviation 40.1, RDW Coeff of Greg 13.7, Plt Count 261, MPV 12.1 H, Immature Gran % (Auto) 0.700, Neut % (Auto) 87.8 H, Lymph % (Auto) 4.2 L, [place] % (Auto) 6.9, Eos % (Auto) 0.2, Baso % (Auto) 0.2, Absolute Neuts (auto) 29.0 H, Absolute Lymphs (auto) 1.40, Nucleated RBC % 0, Differential Comment SEE COMMENTS, Diff Path Review May foll, Platelet Estimate ADEQUATE, RBC Morphology N CHROM, Anisocytosis RARE, Microcytosis RARE ROS Constitutional Constitutional: Denies chills, fatigue, fever(s), poor appetite or weakness Eyes Eyes: Denies blurry vision, change in vision, seeing flashes or spots in vision ENT HEENT: Denies dizziness, headache(s), loss taste/smell or sore throat Cardiovascular Cardiovascular: Denies chest pain, dizziness, dyspnea, irregular heart rhythm, palpitations or rapid heart rate Respiratory/Chest Respiratory/Chest: Denies chest tightness, cough, dyspnea or breast pain Gastrointestinal Gastrointestinal: Denies abdominal pain, constipation or vomiting Genitourinary Genitourinary: Denies dysuria or flank pain Musculoskeletal Musculoskeletal: Denies difficulty walking, joint pain, limited range of motion or numbness Neurologic Neurologic: Denies abnormal movements, abnormal speech, dizziness, numbness, seizure-like activity or syncope Psychiatric Psychiatric: Denies anxiety, behavioral changes, change in appetite, confusion, depression or suicidal thoughts Physical Exam Const alert, oriented x3 and no apparent distress General Appearance: cooperative and comfortable Resp normal respiratory effort Cardio regular rate GI normal to inspection, nondistended, normoactive bowel sounds GI Narrative: uterus is firm below umbilicus Palpation: soft Back/Spine no CVA tenderness and thoraco-lumbar ROM normal Extremity normal to inspection, no clubbing, cyanosis or edema, no calf tenderness and no pedal edema Psych mental status grossly normal, thought process normal, cooperative, affect normal, speech normal, activity/motor behavior normal, denies homicidal ideation and denies suicidal ideation Assessment & Plan (1) Chorioamnionitis in third trimester: PLAN: improving clinically (2) Encounter for induction of labor: (3) Gestational HTN: COMMENT: IOL 38.4 weeks (4) Elevated BP without diagnosis of hypertension: COMMENT: stable BP in WP. normal PEC labs. ok for d/c home. 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 genetic & carrier testing- neg for carrier fragile X. NIPT LR. Declines AFP PLAN: Plan s/p PPD # 1- chorioamnionitis diagnosed following delivery but clinically improving. temp 99.1, pulse 104. wbc yesterday was 33. repeating today. 1. routine post delivery care 2. breast feeding- support given 3. rh positive 4. rubella immune 5. GHTN- bp's improved after delivery
[2024-07-01] MEDS: Acetaminophen 500 MG Tablet 1000 MG PO ×2 (08:22→16:32)
[2024-07-01 13:44] LABS: Pathologist Review Reviewed
[2024-07-01 14:38] LABS: Absolute Lymphocyte Count 1.68 X10^3/uL (0.83-4.51); Absolute Neutrophil Count 23.2 X10^3/uL (2.0-7.7); Basophil# 0.05 X10^3/uL; Basophil% 0.2 % (0-1); Eosinophil# 0.07 X10^3/uL; Eosinophils% 0.3 % (0-5); Hematocrit 22.9 % (37-47); Hemoglobin 7.8 g/dL (12.0-15.0); Lymphocyte # 1.68 X10^3/ul (0.83-4.51); Lymphocyte % 6.2 % (19-41); Mean Corp Hgb Conc 34.1 g/dL (32-36); Mean Corpuscular Volume 82.1 fL (81-99); Mean Platelet Vol. 12.1 fl (6.2-12.0); Monocyte# 1.93 X10^3/uL; Monocyte% 7.1 % (0-10); NRBC Flagged by Analyzer 0 % (0-5); Neutrophil # 23.15 X10^3/uL (2.7-7.7); Neutrophil % 85.2 % (47-70); POSITIVE DIFFERENTIAL YES; Platelet Count 215 K/mm3 (150-450); RBC Distribution Width CV 13.9 % (11.6-14.6); RBC Distribution Width SD 41.6 fl (35.1-43.9); Red Blood Count 2.79 M/mm3 (4.2-5.4); White Blood Count 27.1 K/mm3 (4.4-11.0)
[2024-07-01 14:40] LABS: Differential Indicated SCAN CRITERIA MET
[2024-07-01] MEDS: Iron Sucrose Complex 200 MG in 0.9% Normal Saline (100mL Bag) 100 ML 220 MG IV (16:53)
[2024-07-02] VITALS (8 sets, daily range): BP systolic 113–128; BP diastolic 64–81; PULSE 87–111; RESP 16; TEMP 36.4–37.1; O2SAT 98–100
[2024-07-02 05:16] LABS: Absolute Lymphocyte Count 1.57 X10^3/uL (0.83-4.51); Absolute Neutrophil Count 16.7 X10^3/uL (2.0-7.7); Basophil# 0.07 X10^3/uL; Basophil% 0.3 % (0-1); Eosinophil# 0.23 X10^3/uL; Eosinophils% 1.1 % (0-5); Hematocrit 20.6 % (37-47); Hemoglobin 6.6 g/dL (12.0-15.0); Lymphocyte # 1.57 X10^3/ul (0.83-4.51); Lymphocyte % 7.8 % (19-41); Mean Corpuscular Hgb 26.6 pg (27.0-32.0); Mean Corpuscular Volume 83.1 fL (81-99); Mean Platelet Vol. 12.1 fl (6.2-12.0); Monocyte# 1.19 X10^3/uL; Monocyte% 5.9 % (0-10); NRBC Flagged by Analyzer 0 % (0-5); Neutrophil # 16.66 X10^3/uL (2.7-7.7); Neutrophil % 83.3 % (47-70); Platelet Count 220 K/mm3 (150-450); RBC Distribution Width CV 14.2 % (11.6-14.6); RBC Distribution Width SD 42.1 fl (35.1-43.9); Red Blood Count 2.48 M/mm3 (4.2-5.4); White Blood Count 20.1 K/mm3 (4.4-11.0)
[2024-07-02] MEDS: 0.9% Normal Saline (500mL Bag) 500 ML 15 ML IV (06:18)
[2024-07-02] MEDS: 0.9% Saline Lock 10 ML Syringe IV ×5 (07:03→14:02)
--- NOTE | 2024-07-02 08:06 | PCM.PN.OB ---
Subjective Subjective Patient doing well without complaints. Tolerating PO. Ambulating and voiding without difficulty. feeding well. Denies chest pain, shortness of breath, calf pain/swelling, fevers, chills, lightheadedness. Objective Data Objective Data Vital Signs: Vital Signs Temp Pulse Resp BP Pulse Ox O2 Del Method 97.5 F L 99 16 128/72 H 98 Room Air 07/02/24 02:15 07/02/24 02:15 07/02/24 02:15 07/02/24 02:15 07/02/24 02:15 07/02/24 02:15 Oxygen Delivery Method Room Air Weight: 178 lb 12.718 oz Body Mass Index (BMI) 33.7 Intake & Output: Intake and Output for Last 24 Hours 06/30/24 07/01/24 07/02/24 23:59 23:59 23:59 Intake Total 4675.40 / 4675.40 652.08 / 652.08 Output Total 630 / 630 500 / 500 Balance 4045.40 / 4045.40 152.08 / 152.08 Lab / Micro Data 07/02/24 05:05 06/29/24 16:20 Labs: Laboratory Results - last 24 hr 06/29/24 21:40: Crossmatch See Detail 06/30/24 22:30: Diff Path Review Reviewed 07/01/24 14:25: WBC 27.1 H, RBC 2.79 L, Hgb 7.8 L, Hct 22.9 L, MCV 82.1, MCH 28.0, MCHC 34.1, RDW Std Deviation 41.6, RDW Coeff of Greg 13.9, Plt Count 215, MPV 12.1 H, Immature Gran % (Auto) 1.000 H, Neut % (Auto) 85.2 H, Lymph % (Auto) 6.2 L, [place] % (Auto) 7.1, Eos % (Auto) 0.3, Baso % (Auto) 0.2, Absolute Neuts (auto) 23.2 H, Absolute Lymphs (auto) 1.68, Nucleated RBC % 0, Diff Path Review April07/02/24 05:05: WBC 20.1 H, RBC 2.48 L, Hgb 6.6 L, Hct 20.6 L, MCV 83.1, MCH 26.6 L, MCHC 32.0 D, RDW Std Deviation 42.1, RDW Coeff of Greg 14.2, Plt Count 220, MPV 12.1 H, Immature Gran % (Auto) 1.600 H, Neut % (Auto) 83.3 H, Lymph % (Auto) 7.8 L, [place] % (Auto) 5.9, Eos % (Auto) 1.1, Baso % (Auto) 0.3, Absolute Neuts (auto) 16.7 H, Absolute Lymphs (auto) 1.57, Nucleated RBC % 0 ROS Constitutional Constitutional: Reports systems reviewed and no addt'l complaints, except as documented Cardiovascular Cardiovascular: Reports systems reviewed and no addt'l complaints, except as documented Respiratory/Chest Respiratory/Chest: Reports systems reviewed and no addt'l complaints, except as documented Gastrointestinal Gastrointestinal: Reports systems reviewed and no addt'l complaints, except as documented Physical Exam Const alert, oriented x3 and no apparent distress HEENT Head and Scalp: atraumatic Resp normal respiratory effort GI soft to palpation and non-tender Bimanual Exam - Vag & Uterus: uterus non-tender Uterus Palpation: uterus fundus firm (below Umbilicus) Assessment & Plan (1) Chorioamnionitis in third trimester: (2) Anemia, blood loss: COMMENT: 1 unit ordered for transfusion, check cbc 2 hours post transfusion PLAN: Plan s/p PPD # 2 1. routine post delivery care 2. breast feeding- support given 3. rh positive 4. rubella immune
[2024-07-02] MEDS: Naproxen 500 MG Tablet PO (08:59)
[2024-07-02 14:26] LABS: Hematocrit 23.5 % (37-47); Hemoglobin 7.7 g/dL (12.0-15.0); Mean Corp Hgb Conc 32.8 g/dL (32-36); Mean Corpuscular Hgb 27.5 pg (27.0-32.0); Mean Corpuscular Volume 83.9 fL (81-99); Mean Platelet Vol. 12.2 fl (6.2-12.0); Platelet Count 236 K/mm3 (150-450); RBC Distribution Width CV 14.2 % (11.6-14.6); RBC Distribution Width SD 43.2 fl (35.1-43.9); White Blood Count 19.5 K/mm3 (4.4-11.0)
[2024-07-02 16:01] LABS: Pathologist Review Reviewed
== END 2024-07-02 16:50 | disposition home or self-care (01) | DRG 805 ==
LOC: WPOUT 06-30 08:59 → WP 06-30 08:59
PROVIDERS: Obstetrics & Gynecology; Admitting Provider Advanced Practice Midwife; Referring Provider Advanced Practice Midwife; Visit Provider Obstetrics & Gynecology
DX: O13.4 Gestational [pregnancy-induced] hypertension without significant proteinuria, complicating childbirth (principal); Z37.0 Single live birth; O41.1230 Chorioamnionitis, third trimester, not applicable or unspecified; D62 Acute posthemorrhagic anemia; O72.1 Other immediate postpartum hemorrhage; O69.1XX0 Labor and delivery complicated by cord around neck, with compression, not applicable or unspecified; O34.03 Maternal care for unspecified congenital malformation of uterus, third trimester; Q51.3 Bicornate uterus; O90.81 Anemia of the puerperium; O70.1 Second degree perineal laceration during delivery; O76 Abnormality in fetal heart rate and rhythm complicating labor and delivery; Z14.8 Genetic carrier of other disease; Z3A.38 38 weeks gestation of pregnancy
CPT/HCPCS: 59025; 59050; 82565; 82570; 84156; 84450; 84460; 84550; 85025; 85027; 86780; 86850; 86900; 86901; 86920; 99221; J1756; J7040; J7120; P9016; A4216; G0378; J2405